=== PATIENT | male | born 1985 | race Native Hawaiian/Other Pacific Islander ===

== ENCOUNTER 2022-04-25 07:55 | Outpatient (CLI) | payer OTHER ==
[2022-04-25 08:17] LABS: PLATELET COUNT 287 K/uL (142-355)
[2022-04-25 08:38] LABS: POTASSIUM 4.7 mmol/L (3.6-5.2)
== END 2022-04-25 19:00 | disposition home or self-care (01) ==
LOC: LABW 07:55
PROVIDERS: ATTEND Internal Medicine Endocrinology, Diabetes & Metabolism
DX: R53.83 Other fatigue (principal); Z13.29 Encounter for screening for other suspected endocrine disorder; M25.561 Pain in right knee; Z86.79 Personal history of other diseases of the circulatory system; Z13.1 Encounter for screening for diabetes mellitus; Z13.220 Encounter for screening for lipoid disorders; Z13.21 Encounter for screening for nutritional disorder; Z09 Encounter for follow-up examination after completed treatment for conditions other than malignant neoplasm
CPT/HCPCS: 36415; 80053; 80061; 82306; 82607; 82746; 83036; 84402; 84403; 84439; 84443; 85027